=== PATIENT | male | born 1935 | race Caucasian/White ===

== ENCOUNTER 2017-03-21 10:13 | Observation (INO) | payer MEDICAID ==
[~2017-03-21] VITALS: Ht 180.3 cm; Wt 100.0 kg
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
--- NOTE | ~2017-03-21 | DS ---
PATIENT:MIC RESENDIZ :37 MEDICAL RECORD: [id number] DISCHARGE SUMMARY ADMISSION DATE: 03/21/17 DISCHARGE DATE: 03/22/17 DATE OF ADMISSION: 03/21/2017. DATE OF DISCHARGE: 03/22/2017. ADMISSION DIAGNOSES: 1. Fall. 2. Chronic right rib fractures. 3. Right acromioclavicular joint dislocation. 4. Diabetes mellitus. 5. Coronary artery disease. 6. Atrial fibrillation. 7. Dyslipidemia. 8. Hypertension. 9. Hypothyroidism. DISCHARGE DIAGNOSES: 1. Fall. 2. Chronic right rib fractures. 3. Right acromioclavicular joint dislocation. 4. Diabetes mellitus. 5. Coronary artery disease. 6. Atrial fibrillation. 7. Dyslipidemia. 8. Hypertension. 9. Hypothyroidism. PROCEDURE: None. CONSULTATIONS: Orthopedic surgery. REPORT OF HOSPITALIZATION: The patient was admitted to the hospital through the ER and the patient had a language barrier as he was from [facility] and was a very poor historian. It is very difficult to determine what exactly was going on with the patient, whether his rib fractures and AC joint dislocation were acute or chronic injury that did happen about 8 months prior. The patient used to be a patient of Dr. Whimtan's, but according to the report that we received he had been discharged from his clinic. The patient has a history of atrial fibrillation and coronary artery disease and sees Dr. Layne. He was admitted through the ER with these what was believed to be acute injuries, but after speaking with the patient I believe his injuries were actually chronic in nature. He states that he just fell down while walking across the street, he reports that he falls down quite often and he is unsure why. He does not have a primary care physician at this point since he no longer sees Dr. Whitman and is very adamant about findings some doctor to take care him. The patient had some degree of confusion, but appears to be fairly alert. The patient was stable and an ortho evaluation showed that this may be an acute versus chronic injury and they recommended an MRI to see him back as an outpatient. The patient was also seen by [facility] for an evaluation for possible inpatient placement. They felt that there was no need for any inpatient hospitalization and felt he should be stable for discharge home and was on correct medication. Upon reviewing all of these things, the patient was set up for discharge home. At that time, he DISCHARGE SUMMARY REPORT [id number] MIC RESENDIZ was quite upset and was combative with the nurses and stated that he was just going to go to [place] to a hospital there. The patient's IV was removed and he was eventually discharged home with a sling for his arm. DISCHARGE INSTRUCTIONS: To follow up with the primary care physician CAROLINE. DISCHARGE FOLLOWUP: With Dr. Lama in ortho clinic with an outpatient MRI. DISCHARGE MEDICATIONS: Resume all home medications. TRANSINT:[id number] Voice Confirmation ID: [id number] DOCUMENT ID: [id number] ZE BAZAN MD at 1123 CC: [id number] DICTATION DATE: 04/12/1754 SOFTWARE SUPPORT REPRESENTATIVE: 04/13/17 0217 DIS IN 03/22/17 [place] [place] [address]
[~2017-03-21 10:13] MED LIST: ACETAMINOPHEN500 M1 PO; AMBIEN10 MG PO; AMITIZA24 MCG PO; ASPIRIN EC81 M1 PO; ASPIRIN81 MG PO; ATIVAN1 MG PO; BETAPACE 80 MG80 MG PO; CLONAZEPAM; CRESTOR10 MG PO; FLOMAX0.4 MG PO; GLUCOPHAGE500 MG PO; K-DUR20 MEQ PO; KLONOPIN1 MG PO; LANOXIN125 MCG PO; LANOXIN250 MCG PO; LASIX20 MG PO; LASIX40 MG PO; LEVOTHROID125 MCG PO; LEXAPRO10 MG PO; LIDODERM 5 %1 PATCH TD; LYRICA75 MG PO; METOPROLOL TART50 MG PO; PROSCAR5 MG PO; REMERON15 MG PO; REQUIP1 MG PO; SYNTHROID100 MCG PO; SYNTHROID125 MCG PO; TENORMIN50 MG PO; TOPROL XL50 MG PO; ULTRAM50 MG PO; ZETIA10 MG PO; ZYLOPRIM300 MG PO
[2017-03-21 11:20] LABS: BASOPHILS 0.2 % (0-2); EOSINOPHILS 4.7 % (0-7); HEMATOCRIT 36.1 % (42.0-54.0); HEMOGLOBIN 11.5 g/dL (13.5-17.5); IMMATURE GRANULOCYTES 0.2 % (0-5); LYMPHOCYTES 22.4 % (15-50); MCH 22.9 pg (26.0-34.0); MCHC 31.9 g/dL (31.0-37.0); MCV 71.8 fL (80.0-100.0); MEAN PLATELET VOLUME 8.8 fL (7.4-10.4); MONOCYTES 10.9 % (2-11); NEUTROPHILS 61.6 % (40-80); PLATELET COUNT 207 10x3/uL (130-400); RBC 5.03 10x6/uL (4.20-6.10); RDW 17.1 % (11.5-14.5); WBC 6.4 10x3/uL (4.8-10.8)
[2017-03-21 11:34] LABS: APTT 35.3 SECONDS (22.8-39.4); INR 1.39 (0.85-1.17); PROTIME 16.6 SECONDS (11.6-15.0)
[2017-03-21 11:40] LABS: ALBUMIN 3.3 g/dL (3.4-5.0); ANION GAP 10.9 mmol/L (8-16); BILIRUBIN - TOTAL 0.4 mg/dL (0.2-1.3); CALCIUM 8.3 mg/dL (8.5-10.1); CARBON DIOXIDE 26.4 mmol/L (21.0-32.0); CREATININE - SERUM 1.1 mg/dL (0.6-1.3); POTASSIUM - SERUM 4.3 mmol/L (3.5-5.1); PROTEIN - SERUM 6.7 g/dL (6.4-8.2)
[2017-03-21 12:43] LABS: APPEARANCE CLEAR (CLEAR); BILIRUBIN NEGATIVE (NEGATIVE); COLOR YELLOW (YELLOW); GLUCOSE NEGATIVE (NEGATIVE); KETONE NEGATIVE (NEGATIVE); NITRITE NEGATIVE (NEGATIVE); PROTEIN NEGATIVE (NEGATIVE); SPECIFIC GRAVITY 1.015 (1.005-1.020); UROBILINOGEN NORMAL (NORMAL)
[2017-03-21 12:46] LABS: BACTERIA FEW /hpf (NONE SEEN); EPITHELIAL CELLS 0-5 /hpf (0-5); MUCUS <1+ /lpf (NONE SEEN); RED CELLS - URINE 0-5 /hpf (0-5); WHITE CELLS - URINE OCC /hpf (0-5)
[2017-03-21 12:48] LABS: UDS - AMPHET NEGATIVE QUAL (NEGATIVE); UDS - BARB NEGATIVE QUAL (NEGATIVE); UDS - BENZO NEGATIVE QUAL (NEGATIVE); UDS - COCAINE NEGATIVE QUAL (NEGATIVE); UDS - OPIATE NEGATIVE QUAL (NEGATIVE); UDS - PCP NEGATIVE QUAL (NEGATIVE); UDS - THC NEGATIVE QUAL (NEGATIVE)
[2017-03-22] VITALS: BP 70/35
[2017-03-22 04:00] VITALS: BP 108/58
[2017-03-22 04:37] VITALS: BP 93/41; BMI 30.7
[2017-03-22 08:21] VITALS: BP 124/65
[2017-03-22 11:50] VITALS: BP 133/72
[2017-03-22 12:14] VITALS: Ht 180.3 cm; Wt 100.0 kg
[2017-03-22 16:09] VITALS: BP 110/64
== END 2017-03-22 18:38 | disposition left against medical advice (07) ==
LOC: D.ER 10:13 → D.MS 16:12 → OBSVTIME 16:12 → D.MS 16:12
PROVIDERS: Emergency Medicine
DX: S43.101A Unspecified dislocation of right acromioclavicular joint, initial encounter (principal); S22.31XA Fracture of one rib, right side, initial encounter for closed fracture; I10 Essential (primary) hypertension; E03.9 Hypothyroidism, unspecified; I25.10 Atherosclerotic heart disease of native coronary artery without angina pectoris; E11.9 Type 2 diabetes mellitus without complications; I48.91 Unspecified atrial fibrillation; Z79.01 Long term (current) use of anticoagulants; S22.41XA Multiple fractures of ribs, right side, initial encounter for closed fracture

== ENCOUNTER → 2017-05-06 12:27 | Outpatient (CLI) | payer MEDICARE ==
[2017-03-22 12:14] VITALS: BMI 30.7
== END | disposition home or self-care (01) ==
LOC: D.MRI 12:27
DX: M48.00 Spinal stenosis, site unspecified (principal); M54.5 Low back pain

== ENCOUNTER 2017-06-25 14:50 | Observation (INO) | payer MEDICARE ==
[~2017-06-25] VITALS: Ht 180.3 cm; Wt 87.7 kg
--- NOTE | ~2017-06-25 | HP ---
PATIENT: MIC RESENDIZ MEDICAL RECORD: [id number] ACCOUNT: [id number] LOCATION:[address] : 37 ADMISSION DATE: 06/25/17 HISTORY AND PHYSICAL EXAMINATION HISTORY OF PRESENT ILLNESS: An 82-year-old gentleman with known history of coronary artery disease, status post recent intervention via Dr. Layne. He has a history of atrial fibrillation, admitted with chest pain, tightness consistent with angina, found to be in atrial fibrillation with RVR. He was given IV Cardizem. He converted to sinus rhythm. He continued to have pain intermittently. Unfortunately, he missed 2 or 3 doses of Plavix and sotalol. We are asked to see him concerning his cardiovascular status. PAST MEDICAL HISTORY: Includes history of hypertension, atrial fibrillation, and hypothyroidism, on replacement. ALLERGIES: PENICILLIN. MEDICATIONS: Include Synthroid 125 mcg every day, Raphine 10/325 every day, Lexapro 10 every day, aspirin 81 every day, sotalol 80 b.i.d., Plavix 75 every day, ProAir 2 puffs q.6 hours. PHYSICAL EXAMINATION GENERAL: Pleasant gentleman in no acute distress. VITAL SIGNS: Blood pressure 113/65, pulse 66 and regular. HEENT: Normocephalic and atraumatic. NECK: No bruits noted. HEART: Regular, II/ systolic ejection murmur. LUNGS: Good air excursion. ABDOMEN: Soft, nontender. EXTREMITIES: Pulses 2+ with no edema. DIAGNOSTIC DATA: ECG shows left anterior fascicular block and initial atrial fibrillation, now sinus rhythm. IMPRESSION: Continued pain. Unfortunately, given his Plavix noncompliance, we probably need to revisualize anatomy with continued pain. Otherwise, increase sotalol to 120 b.i.d. Further recommendations based on above. TRANSINT:[id number] Voice Confirmation ID: [id number] DOCUMENT ID: [id number] JIMBO RIOS MD at 1328 CC: [id number] DICTATION DATE: 06/26/17 0858 LOCKSTITCH HEMMER: 06/26/17 0934 ADM IN [place] [id number] [place] [address]
--- NOTE | ~2017-06-25 | OP ---
PATIENT NAME: MIC RESENDIZ MEDICAL RECORD: [id number] :37 LOCATION:D.M2 D.2123 ADMISSION DATE:06/25/17 SURGEON: JIMBO RIOS MD DATE OF OPERATION: 06/26/2017 PROCEDURE: Left heart catheterization, selective coronary angiography, right femoral artery approach. CATHETERS: A 5-Korean sheath, 5/4 left and right Romina, 5/4 pig. The procedure was well tolerated. The patient returned to saenz. Sheath removed. Exoseal device placed. FINDINGS: Left ventriculography in 30-degree DOYLE view: Difficult to fully assess focal wall motion with underlying PACs and short bursts of AFib, although function appears to be mildly reduced at 40% to 45%. CORONARY ANATOMY: LEFT MAIN: The left main is free of disease. LAD: Fills 1 diagonal before it is totally occluded. This diagonal has a stent that is widely patent. CIRCUMFLEX: Circumflex itself is patent distally. There is totally occluded OM. RIGHT CORONARY ARTERY: Totally occluded in its proximal portion. SAPHENOUS VEIN GRAFTS: 1. Saphenous vein graft to the right coronary artery is widely patent with good runoff distally. 2. Saphenous vein graft to the OM is widely patent without evidence of post-anastomotic stenosis. 3. FOSS to LAD is widely patent. IMPRESSION: Patent stent to the diagonal, patent saphenous graft, mildly decreased LV function. Continue medical management. We will increase sotalol to 120 b.i.d. upon discharge. TRANSINT:[id number] Voice Confirmation ID: [id number] DOCUMENT ID: [id number] JIMBO RIOS MD at 1155 CC: [id number] DICTATION DATE: 06/26/17 1333 FINANCIAL ASSISTANCE SPECIALIST: 06/26/17 1356 DIS IN 06/26/[address] [facility] [address] [place] [address]
--- NOTE | ~2017-06-25 | HEMODYNAMI ---
PATIENT:MIC RESENDIZ MEDICAL RECORD: [id number] : 37 LOCATION:[facility] [address] [facility]# [id number] ADMISSION DATE: 06/25/17 Generatedon:06/26/201713:28 Patient name: MIC RESENDIZ Patient #: [id number] SSN : [id number] : 1935 Date of study: 06/26/2017 Page: Of Hemodynamic Procedure Report Patient Data Patient Demographics Procedure consent was obtained First Name: MIC Gender: Male Last Name: MARTÍN : 1935 Patient #: [id number] Age: 82 year(s) Race: SSN: [id number] Additional ID: [id number] Contact details Address: [address] [place] [address] State: [place] City: [facility] Zip code: [address] Past Medical History Allergies Allergen Reaction Date Comments Reported Other allergy 05/21/2017 PCN Penicillins 05/22/2017 Other allergy 06/26/2017 penicillin Admission Admission Data Admission Date: 06/25/2017 Admission Time: 18:37 Arrival Date: 06/25/2017 Arrival Time: 18:03 Admit Source: Other Insurance Payor: Medicare Room #: D.2123 Lab Results Lab Result Date: 06/26/2017 Lab Result Time: 0:00 Biochemistry Name Units Result Min Max BUN mg/dl 24 --(----)-* 7 18 Creatinine mg/dl 1.1 --(--*-)-- 0.6 1.3 Glucose mg/dl 88 --(-*--)-- 74 106 CBC Name Units Result Min Max Hemoglobin g/dl 11.7 *-(----)-- 13.5 17.5 RBC 10^6/l 5.2 --(--*-)-- 4.2 6.1 WBC 10^3/l 8.5 --(--*-)-- 4.8 10.8 Procedure Procedure Types Cath Procedure Diagnostic Procedure [facility] w/Coronaries w/Grafts Procedure Description Procedure Date Procedure Date: 06/26/2017 Procedure Start Time: 13:12 Procedure End Time: 13:24 Procedure Staff Name Function Claudio Mckenzie MD Performing Physician Deb Hodge RT Monitor Emir Richardson RN Nurse Gloria Maza RT Scrub Procedure Data Cath Procedure Fluoroscopy Diagnostic fluoroscopy Total fluoroscopy Time: 3.8 time: 3.8 min min Diagnostic fluoroscopy Total fluoroscopy dose: 871 dose: 871 mGy mGy Contrast Material Contrast Material Type Amount (ml) Isovue 300 75 Entry Location Entry Primary Successful Side Size Upsize Upsize Entry Closure Succes sful Closure Location (Fr) 1 (Fr) 2 (Fr) Remarks Device Remarks Femoral Right 5 Fr Exoseal artery Estimated blood loss: 5 ml Diagnostic catheters Device Type Used For End Catheter Placement MULTIPACK JL 4.0 5Fr Left Coronary catheter Angiography MULTIPACK 3DRC 5Fr Right Coronary catheter Angiography MULTIPACK Pigtail 5 Fr LV Angiography catheter Procedure Complications No complications Procedure Medications Medication Administration Route Dosage Oxygen etCO2 Nasal cannula 2 l/min Heparin Flush Bag added to field 1 bags (1000units/500ml NS) 0.9% NaCl I.V. 100 ml/hr Fentanyl I.V. 50 mcg Versed I.V. 1 mg Fentanyl I.V. 50 mcg Versed I.V. 1 mg Hemodynamics Rest HGB: 11.7 (g/dl) Heart Rate: 88 (bpm) Pressure Samples Time Site Value (mmHg) Purpose Heart Use Rate(bpm) 13:21 LV 107/19,18 Snapshot 105 13:21 AO 108/74(89) Pullback 99 13:21 LV 111/22,12 Pullback 99 Gradients Valve Time Site 1 Site 2 Mean SEP/DFP Peak To Heart Use (mmHg) (sec/min) Peak Rate (mmHg) (bpm) Aortic 13:21 LV AO 3 99 111/22,12 108/74(89) Calculations Valve P-P Mean Valve Index Valve Source Name Gradient Area Flow (cm2) Aortic 3 3 Snapshots Pre Cath Intra NCS Post Cath Vital Signs Time Heart Resp SPO2 etCO2 NIBP Rhythm Pain Sedation Rate (ipm) (%) (mmHg) (mmHg) Status Level (bpm) 12:57:39 95 16 99 0 114/79(90) NSR 0 (11) 10(A) , No pain 13:01:51 96 17 95 0 102/64(81) NSR 0 (11) 10(A) , No pain 13:05:59 87 16 96 0 105/65(93) NSR 0 (11) 10(A) , No pain 13:10:05 88 16 97 0 85/54(72) NSR 0 (11) 9(A) , No pain 13:14:09 80 16 100 36.9 96/59(80) NSR 0 (11) 9(A) , No pain 13:18:12 101 16 100 15.1 98/65(80) NSR 0 (11) 9(A) , No pain 13:22:51 123 17 98 39.2 113/84(97) NSR 0 (11) 9(A) , No pain Medications Time Medication Route Dose Verified Delivered Reason Notes Effe ctiveness by by 13:07:25 Oxygen etCO2 2 Claudio Emir Per Nasal l/min St Hugo Richardson RN physician cannula 13:07:34 Heparin Flush added 1 Claudio Emir used for Bag to bags St Hugo Richardson RN procedure (1000units/500ml field MARQUEZ NS) 13:07:43 0.9% NaCl I.V. 100 Claudio Emir Per ml/hr St Hugo Richardson RN physician 13:09:07 Fentanyl I.V. 50 Claudio [place] for [facility] Hugo Richardson RN sedation 13:09:13 Versed I.V. 1 mg Claudio Vázquezy for [facility] Hugo Richardson RN sedation 13:12:47 Fentanyl I.V. 50 Claudio Field for [facility] Hugo Richardson RN sedation 13:12:51 Versed I.V. 1 mg Claudio Vázquezy for St Hugo Richardson RN sedation Procedure Log Time Note 12:27:19 Lab Result : Glucose 88 mg/dl 12:27:19 Lab Result : RBC 5.2 10^6/l 12:27:19 Lab Result : WBC 8.5 10^3/l 12:27:19 Lab Result : Hemoglobin 11.7 g/dl 12:27:19 Lab Result : BUN 24 mg/dl 12:27:19 Lab Result : Creatinine 1.1 mg/dl 12:28:43 Diagnostic Cath status Elective 12:28:50 Gloria Maza RT(R) sent for patient. Start room use. 12:28:51 Time tracking: Regular hours 12:28:57 Plan of Care:Hemodynamics will remain stable., Cardiac rhythm will remain stable., Comfort level will be maintained., Respiratory function will remain adequate., Patient/ family verbilizes understanding of procedure., Procedure tolerated without complication., Recovers from procedure without complications.. 12:41:12 Informed consent obtained and on chart 12:45:59 Admit Source: Other 12:46:09 Arrival Date: 06/25/2017 6:03:00 PM 12:46:16 Insurance Payor : Medicare 12:47:11 Patient received from Med II to CCL 2 Alert and oriented. Tansferred to table in Supine position. 12:47:12 Warm blankets applied, and nelia hugger turned on for patient comfort. 12:47:13 Correct patient and procedure confirmed by team. 12:47:14 ECG and BP/O2 sat monitors applied to patient. 12:56:40 Vital chart was started 12:57:36 Baseline sample Acquired. 12:57:46 Rhythm: atrial fibrillation 12:57:48 Full Disclosure recording started 12:57:57 H&P Date Dictated: 06/26/2017 New H&P dictated by physician.. 12:57:59 Pre-procedure instructions explained to patient. 12:57:59 Pre-op teaching completed and patient verbalized understanding. 12:58:30 Family in patients room. 12:59:15 Patient allergic to Other allergypenicillin 12:59:17 Is the patient allergic to Iodine/contrast media? No. 12:59:18 Was the patient premedicated? No 12:59:19 Is patient on blood thinner?Yes 12:59:22 ACC The patient was administered the following blood thiners within the last 24 hours: ACCPlavix 13:02:03 Patient diabetic? No. 13:02:05 Previous problem with sedation/anesthesia? No ? 13:02:06 Snore? Yes 13:02:08 Sleep apnea? No 13:02:08 Deviated septum? No 13:02:09 Opens mouth fully? Yes 13:02:10 Sticks out tongue? Yes 13:02:12 Airway obstruction? No ? 13:02:14 Dentures? No ? 13:04:19 Pre procedure: right dorsailis pedis pulse 1+ Palpable, but thready & weak; easily obliterated 13:04:21 Pre procedure: left dorsailis pedis pulse 1+ Palpable, but thready & weak; easily obliterated 13:04:25 Patient pain scale 0/10 ?. 13:04:39 IV patent on arrival in left forearm with 0.9% NaCl at O. 13:04:41 Lab results completed and on chart. 13:05:01 Alarms reviewed by R. N. 13:05:02 Sharps counted by scrub and verified by R.N. 13:07:13 Zero performed for pressure channel P1 13:07:25 Oxygen 2 l/min etCO2 Nasal cannula was administered by Emir Richardson RN; Per physician; 13:07:34 Heparin Flush Bag (1000units/500ml NS) 1 bags added to field was administered by Emir Richardson RN; used for procedure; 13:07:43 0.9% NaCl 100 ml/hr I.V. was administered by Emir Richardson RN; Per physician; 13:07:49 Physician arrived 13:07:50 --------ALL STOP TIME OUT------ 13:07:51 Final Timeout: patient, procedure, and site verified with staff and physician. All members of the team are in agreement. 13:07:53 Right groin site verified by team. 13:07:55 Physical assessment completed. ASA score P 2 - A patient with mild systemic disease as per Claudio Mckenzie MD. 13:07:59 Sedation plan: IV Moderate Sedation Medication:Versed, Fentanyl 13:09:07 Fentanyl 50 mcg I.V. was administered by Emir Richardson RN; for sedation; 13:09:13 Versed 1 mg I.V. was administered by Emir Richardson RN; for sedation; 13:09:40 Use device set Femoral Dx 13:09:42 ACIST Syringe (70910) opened to sterile field. 13:09:42 Bag Decanter (2002S) opened to sterile field. 13:09:43 Medline Cath Pack ([id number]) opened to sterile field. 13:09:43 SHEATH 5FR [place] (TTP711) opened to sterile field. 13:09:44 DIAGNOSTIC WIRE .035 260cm J wire (869401) opened to sterile field. 13:09:49 ACIST Hand Control (99508) opened to sterile field. 13:09:50 ACIST Manifold (79644) opened to sterile field. 13:09:51 DIAGNOSTIC Multipack 5Fr catheter set (KO6363) opened to sterile field. 13:09:53 Tegaderm 4 x 4 (1626W) opened to sterile field. 13:12:11 Procedure started. 13:12:14 Local anesthetic to right femoral artery with Lidocaine 2% by Claudio Mckenzie MD.INITIAL ACCESS ONLY 13:12:22 A 5 Fr sheath was inserted into the Right Femoral artery 13:12:47 Fentanyl 50 mcg I.V. was administered by Emir Richardson RN; for sedation; 13:12:51 Versed 1 mg I.V. was administered by Emir Richardson RN; for sedation; 13:13:30 A MULTIPACK JL 4.0 5Fr catheter was advanced over the wire and used for Left Coronary Angiography. 13:15:24 LCA angiography performed. 13:15:28 Injector settings: Ml/sec: 3, Volume: 6, 13:16:32 Catheter removed. 13:16:39 A MULTIPACK 3DRC 5Fr catheter was advanced over the wire and used for Right Coronary Angiography. 13:17:20 SVG to RCA angiography performed. 13:18:26 SVG to Circ angiography performed. 13:18:46 FOSS angiography performed. 13:19:05 Injector settings: Ml/sec: 3, Volume: 6, 13:19:24 Catheter removed. 13:19:30 A MULTIPACK Pigtail 5 Fr catheter was advanced over the wire and used for LV Angiography. 13:21:17 LV hemodynamics recorded. 13:21:19 LV gram done using DOYLE 13:21:21 Injector settings: Ml/sec: 5, Volume: 15, 13:21:34 EF : 40 % 13:21:51 Catheter removed. 13:21:56 EXOSEAL 5Fr (EX500) opened to sterile field. 13:22:06 Sheath removed intact; hemostasis achieved with Exoseal to the Right Femoral artery. 13:22:08 Procedure ended.(Physican Out) 13:22:51 Fluoroscopy time 03.80 minutes. 13:22:55 Fluoroscopy dose: 871 mGy 13:22:55 Flurop Dose total: 871 13:22:58 Contrast amount:Isovue 300 75ml. 13:23:00 Sharps counted by scrub and verified by R.N. 13:23:01 Insertion/operative site no bleeding no hematoma. 13:23:04 Post-op/insertion site Right Femoral artery dressed using a 4 x 4 and Tegaderm. 13:23:06 Post right femoral artery:stable 13:23:34 Post Procedure Pulses reassessed and unchanged 13:23:37 Post procedure rhythm: unchanged. 13:23:39 Estimated blood loss: 5 ml 13:23:40 Post procedure instruction explained to patient.Patient verbalizes understanding. 13:23:41 Patient needs reinforcement of post procedure teaching. 13:24:07 Procedure type changed to Cath procedure, Diagnostic procedure, LHC, LHC w/Coronaries w/Grafts 13:24:08 Procedure and supply charges have been captured, reviewed, submitted and are correct. 13:24:12 Procedure Complication : No complications 13:24:14 Vital chart was stopped 13:24:21 See physician's report for complete and final results. 13:24:25 Report given to [facility]. 13:24:41 Patient transfered to [facility] with Stretcher. 13:24:44 Procedure ended. 13:24:44 Full Disclosure recording stopped 13:24:49 End room use (Document Last) Device Usage Item Name Manufacture Quantity Catalog Hospital Part Current Minimal L ot# / Number Charge Number Stock Stock Serial# Code ACIST Acist 1 61569 600473 690305 180613 20 Syringe Medical (76304) Systems Inc Bag Microtek 1 728760 56822 322557 5 Decanter Medical Inc. () Medline Cardinal 1 [id number] 462173 54682 314149 5 Cath Pack Health ([id number]) SHEATH 5FR Terumo 1 NYT593 383772 053025 277388 40 [place] (PUF654) DIAGNOSTIC St [place] 1 248556 787968 462178 011744 30 WIRE .035 260cm J wire (199957) ACIST Hand Acist 1 28342 144615 832451 865550 5 Control Medical (87625) Systems Inc ACIST Acist 1 10875 051179 738414 542486 5 Manifold Medical (87755) Systems Inc DIAGNOSTIC Cardinal 1 AE7911 400870 66655 718676 30 Multipack Health 5Fr catheter set (ZF2942) Tegaderm 4 3M 1 1626W 906280 085376 607416 5 x 4 (1626W) MULTIPACK Cardinal 1 650113 5 JL 4.0 5Fr Health catheter MULTIPACK Cardinal 1 648334 5 3DRC 5Fr Health catheter MULTIPACK Cardinal 1 036323 5 Pigtail 5 Health Fr catheter EXOSEAL 5Fr Cardinal 1 EX500 081620 660357 400606 10 (EX500) Health Signature Audit [place] Stage Time Signature Unsigned Intra-Procedure 06/26/2017 Deb Hodge 1:28:52 PM RT(R) Signatures Monitor : Deb Hodge RT Signature : Date : Time : [place] [address] [place] [address]
[~2017-06-25 14:50] MED LIST changes: +BAYER CHEWABLE81 MG PO; +COUMADIN5 MG PO; +OMEPRAZOLE40 MG PO; +PLAVIX75 MG PO; +PROAIR HFA8.5 GM INH; +VIBRAMYCIN 100100 MG PO
[2017-06-25 16:05] LABS: BASOPHILS 0.2 % (0-2); EOSINOPHILS 3.1 % (0-7); HEMATOCRIT 36.3 % (42.0-54.0); HEMOGLOBIN 11.7 g/dL (13.5-17.5); IMMATURE GRANULOCYTES 0.4 % (0-5); LYMPHOCYTES 27.9 % (15-50); MCH 22.5 pg (26.0-34.0); MCHC 32.2 g/dL (31.0-37.0); MCV 69.8 fL (80.0-100.0); MONOCYTES 12.7 % (2-11); NEUTROPHILS 55.7 % (40-80); PLATELET COUNT 207 10x3/uL (130-400); RDW 17.2 % (11.5-14.5); WBC 8.5 10x3/uL (4.8-10.8)
[2017-06-25 16:28] LABS: ALBUMIN 3.2 g/dL (3.4-5.0); ALKALINE PHOSPHATASE 42 U/L (46-116); ALT (SGPT) 15 U/L (10-68); BILIRUBIN - TOTAL 0.52 mg/dL (0.2-1.3); CALC OSMOLALITY 281 mosm/kg (275-300); CARBON DIOXIDE 27.2 mmol/L (21.0-32.0); CHLORIDE - SERUM 106 mmol/L (98-107); CREATININE - SERUM 1.1 mg/dL (0.6-1.3); GLUCOSE 88 mg/dL (74-106); POTASSIUM - SERUM 3.8 mmol/L (3.5-5.1); PROTEIN - SERUM 6.8 g/dL (6.4-8.2); SODIUM 140 mmol/L (136-145); UREA NITROGEN 24 mg/dL (7-18); eGFR NON AFRICAN AMERICAN 68 mL/min (90-120)
[2017-06-25 16:37] LABS: CHOL - HDL RATIO 5.6 ratio (2.3-4.9); CHOLESTEROL, TOTAL 234 mg/dL (0-200); CREATINE KINASE 49 UL (21-232); HDL CHOLESTEROL 42 mg/dL (32-96); LDL CHOLESTEROL 162 mg/dL (0-100); LDL-HDL RATIO 3.9 ratio (1.5-3.5); TRIGLYCERIDE 154 mg/dL (30-200)
[2017-06-25 16:43] LABS: INR 1.2 (0.85-1.17); PROTIME 14.8 SECONDS (11.6-15.0)
[2017-06-25 16:45] LABS: D-DIMER-QUANTITATIVE 0.37 ug/mLFEU (0.20-0.54)
[2017-06-25 16:51] LABS: TROPONIN-I < 0.017 ng/mL (0.000-0.060)
[2017-06-25 19:42] LABS: CREATINE KINASE 51 UL (21-232)
[2017-06-25 19:43] LABS: TROPONIN-I < 0.017 ng/mL (0.000-0.060)
[2017-06-26] VITALS: BP 101/67
[2017-06-26] MEDS ORDERED: HYDROCODONE-APA1 TAB PO (00:20)
[2017-06-26 01:33] LABS: CKMB 1.2 U/L (0.0-3.6); CREATINE KINASE 49 UL (21-232); TROPONIN-I < 0.017 ng/mL (0.000-0.060)
[2017-06-26 04:00] VITALS: BP 100/62
[2017-06-26 04:57] VITALS: BP 101/67; Ht 180.3 cm; Wt 87.7 kg
[2017-06-26 06:34] LABS: CKMB 1.1 U/L (0.0-3.6); CREATINE KINASE 43 UL (21-232)
[2017-06-26 06:35] LABS: TROPONIN-I < 0.017 ng/mL (0.000-0.060)
[2017-06-26 07:50] VITALS: BP 113/65
[2017-06-26 10:13] LABS: CALCIUM 8.5 mg/dL (8.5-10.1); CARBON DIOXIDE 26.7 mmol/L (21.0-32.0); CREATININE - SERUM 1.2 mg/dL (0.6-1.3)
[2017-06-26 10:15] LABS: POTASSIUM - SERUM 4.7 mmol/L (3.5-5.1)
[2017-06-26 10:58] VITALS: BP 103/65
[2017-06-26] MEDS ORDERED: BETAPACE 120 M120 MG PO (14:16)
[2017-06-26 15:11] VITALS: BP 92/59
== END 2017-06-26 18:58 | disposition home or self-care (01) ==
LOC: D.ER 14:50 → D.EDHOLD 18:37 → D.M2 18:37 → OBSVTIME 18:37 → D.M2 20:08
PROVIDERS: Family Medicine; Internal Medicine Interventional Cardiology
DX: I44.4 Left anterior fascicular block (principal); I48.91 Unspecified atrial fibrillation; I25.10 Atherosclerotic heart disease of native coronary artery without angina pectoris; I25.82 Chronic total occlusion of coronary artery; I10 Essential (primary) hypertension; Z95.1 Presence of aortocoronary bypass graft; Z95.5 Presence of coronary angioplasty implant and graft; E03.9 Hypothyroidism, unspecified

== ENCOUNTER → 2018-02-05 11:01 | Outpatient (CLI) | payer MEDICARE, MEDICAID ==
[2017-06-26 04:57] VITALS: BMI 26.9
[~2018-02-05 11:01] MED LIST changes: +BETAPACE 120 M120 MG PO; +HYDROCODONE-APA1 TAB PO
== END | disposition home or self-care (01) ==
LOC: D.CT 02-04 11:00
DX: R10.9 Unspecified abdominal pain (principal)

== ENCOUNTER 2018-07-13 06:35 | Observation (INO) | payer MEDICARE, MEDICAID ==
[~2018-07-13] VITALS: Ht 180.3 cm; Wt 94.7 kg
[2018-07-13] VITALS (8 sets, daily range): BP systolic 90–108; BP diastolic 50–75; BMI 30.1
--- NOTE | ~2018-07-13 | EC ---
PATIENT:MIC RESENDIZ DATE OF SERVICE: 07/13/18 SEX: M MEDICAL RECORD: [id number] DATE OF : 37 LOCATION:D.M2 D.212 AGE OF PATIENT: 83 ADMISSION DATE: 07/13/18 REFERRING PHYSICIAN: INTERPRETING PHYSICIAN: ANTONIETA LAYNE MD ECHOCARDIOGRAM REPORT ECHO CHARGES 4 ECHO COMPLETE Date: 07/14/18 CLINICAL DIAGNOSIS: ECHOCARDIOGRAPHIC MEASUREMENTS (adult normal given) AC root (d.<3.7cm) 3.0 cm LV Septum d (<1.2 cm> 1.3 cm Valve Excursion 1.7 cm LV Septum (systole) 1.4 cm Left Atria (s.<4.0cm> 3.6 cm LVPW d(<1.2cm) 0.9 cm RV (d.<2.3cm) 3.4 cm LVPW (sytole) 1.1 cm LV diastole(<5.6CM) 4.5 cm MV E-F(>70mm/sec) cm LV systole 4.1 cm LVOT Diameter 1.9 cm MV exc.(>10mm) cm Est.ejection fraction (50-75%) % DOPPLER: LVIT cm/sec A 25 cm/sec E 111 cm/sec LA cm/sec RVSP 26.1 mmHg LVOT 67 cm/sec AOP1/2T m/s Asc. Ao 187 cm/sec RVOT 44 cm/sec RA cm/sec PA 54 cm/sec AV Gradient Peak 14.0 mmHg AV Mean 8.7 mmHg AV Area 1.1 cm MV Gradient Peak 6.5 mmHg MV Mean 2.7 mmHg MV Area cm COMMENTS: Airplane Tester: Nick [facility] Water Inspector: 1 Dr. Layne TAPE# PACS Pericardial Effusion N DATE OF SERVICE: PROCEDURE: Echocardiogram. FINDINGS: 1. Left ventricular chamber size is within normal limits. Left ventricular systolic function is normal. Overall ejection fraction estimated at 55%. 2. Left atrium, right atrium, and right ventricular chamber sizes are within normal limits. 3. Valvular structures have normal structure and motion. ECHOCARDIOGRAM REPORT [id number] MIC RESENDIZ 4. Doppler interrogation reveals trace mitral regurgitation, trace tricuspid regurgitation, no other valvular insufficiency or stenosis. Pulmonary systolic pressure is estimated at 26 mmHg. 5. No evidence of pericardial effusion or left ventricular thrombus. TRANSINT:[id number] Voice Confirmation ID: [id number] DOCUMENT ID: [id number] ANTONIETA LAYNE MD CC: [id number] DICTATION DATE: 07/14/18 123 CREDIT RISK OFFICER: 07/14/18 1239 ADM IN [facility] [address] [place] [address]
[2018-07-13] MEDS ORDERED: ELIQUIS5 MG PO (06:39)
[2018-07-13 07:14] LABS: BASOPHILS 0.1 % (0-2); EOSINOPHILS 0.4 % (0-7); HEMATOCRIT 37.5 % (42.0-54.0); HEMOGLOBIN 12.4 g/dL (13.5-17.5); IMMATURE GRANULOCYTES 0.3 % (0-5); LYMPHOCYTES 13.3 % (15-50); MCH 22.9 pg (26.0-34.0); MCHC 33.1 g/dL (31.0-37.0); MCV 69.2 fL (80.0-100.0); MONOCYTES 15.9 % (2-11); PLATELET COUNT 181 10x3/uL (130-400); RBC 5.42 10x6/uL (4.20-6.10); RDW 17.1 % (11.5-14.5)
--- NOTE | 2018-07-13 07:22 | NUR ---
REPORTS PAIN UNCHANGED AFTER NTG, 07/02, BP 90/50, WILL MONITOR CLOSELY
[2018-07-13 07:36] LABS: INR 1.22 (0.85-1.17); PROTIME 14.8 SECONDS (11.6-15.0)
[2018-07-13 07:37] LABS: APTT 37.6 SECONDS (22.8-39.4)
[2018-07-13 07:38] LABS: D-DIMER-QUANTITATIVE < 0.27 ug/mLFEU (0.20-0.54)
[2018-07-13 07:46] LABS: ALBUMIN 3.5 g/dL (3.4-5.0); ALKALINE PHOSPHATASE 51 U/L (46-116); ALT (SGPT) 15 U/L (10-68); BILIRUBIN - TOTAL 1.34 mg/dL (0.2-1.3); CALC OSMOLALITY 272 mosm/kg (275-300); CARBON DIOXIDE 27.4 mmol/L (21.0-32.0); CHLORIDE - SERUM 100 mmol/L (98-107); CKMB 0.5 U/L (0.0-3.6); CREATINE KINASE 39 UL (21-232); CREATININE - SERUM 1.1 mg/dL (0.6-1.3); GLUCOSE 114 mg/dL (74-106); MAGNESIUM - SERUM 1.9 mg/dL (1.8-2.4); POTASSIUM - SERUM 3.7 mmol/L (3.5-5.1); PRO BNP 1447 pg/mL (0-450); PROTEIN - SERUM 7.2 g/dL (6.4-8.2); SODIUM 135 mmol/L (136-145); UREA NITROGEN 18 mg/dL (7-18); eGFR NON AFRICAN AMERICAN 68 mL/min (90-120)
[2018-07-13 07:53] LABS: TROPONIN-I < 0.017 ng/mL (0.000-0.060)
--- NOTE | 2018-07-13 09:08 | NUR ---
RECEIVED REPORT FROM RENZO IN ED. PATIENT TO UNIT SOON. INFORMED RENZO THAT CONSULT FOR WAS PLACED AT 0840 AND SHE NEED TO CALL AND INFORM HIM OF THE CONSULT.
--- NOTE | 2018-07-13 09:31 | NUR ---
RECEIVED PATIENT FROM ED VIA WHEELCHAIR AT THIS TIME. PATIENT ALERT/ORIENTED AND AMBULATED FROM WHEELCHAIR TO BED INDEPENDENTLY. CALL LIGHT WITHIN REACH. NO FAMILY AT BEDSIDE. NO DISTRESS.
--- NOTE | 2018-07-13 12:00 | NUR ---
PATIENT REFUSED LUNCH. STATES HE DOESN'T FEEL LIKE EATING. CALL LIGHT WIHTIN REACH. PATEINT HAS HAD A FEW FRIENDS STOP BY AND SEE HIM. NO DISTRESS.
[2018-07-13 14:35] LABS: % SATURATION 13 % (15-55); IRON 34 ug/dl (35-150); TOTAL IRON BIND CAPACITY 248 ug/dl (260-445); UNSAT IRON BIND CAPACITY 214 ug/dl (150-375)
--- NOTE | 2018-07-13 15:34 | NUR ---
RESTING IN BED WITH EYES CLOSED. VS STABLE. NO DISTRESS.
--- NOTE | 2018-07-13 16:15 | NUR ---
FSBS 87. NO INSULIN PER SLIDING SCALE.
--- NOTE | 2018-07-13 20:06 | NUR ---
INITIAL ROUNDS COMPLETED AT 1910 HRS. PT DENIED ANY DISCOMFORT. ASSESSMENT COMPLETED AT 1954 HRS. VSS. PACED RHYTHM PER CM HR 80. ALERT AND ORIENTED TO PERSON, PLACE AND TIME. WEBER IV TO RAC SL. LUNGS DIMINISHED IN BASES BILAT. SR UP X2, CALL LIGHT WITHIN REACH.
--- NOTE | 2018-07-13 21:28 | NUR ---
FSBS 110. NO COVERAGE NEEDED. PM MEDS GIVEN. PT DENIED ANY DISCOMFORT. CALL LIGHT WITHIN REACH.
--- NOTE | 2018-07-13 23:44 | NUR ---
PT RESTING WITH EYES CLOSED. RESP EVEN AND REGULAR. CALL LIGHT WITHIN REACH.
[2018-07-14 00:30] VITALS: BP 97/49
--- NOTE | 2018-07-14 01:56 | NUR ---
PT RESTING WITH EYES CLOSED. RESP EVEN AND REGULAR. SR UP X2, CALL LIGHT WITHIN REACH.
[2018-07-14 03:48] VITALS: BP 108/60
--- NOTE | 2018-07-14 04:07 | NUR ---
PT RESTING WITH EYES CLOSED. RESP EVEN AND REGULAR. SR UP X2, CALL LIGHT WITHIN REACH.
[2018-07-14 06:04] LABS: ANION GAP 7.8 mmol/L (8-16); CALCIUM 8.5 mg/dL (8.5-10.1); CARBON DIOXIDE 31.3 mmol/L (21.0-32.0); CREATININE - SERUM 1.1 mg/dL (0.6-1.3); POTASSIUM - SERUM 4.1 mmol/L (3.5-5.1)
--- NOTE | 2018-07-14 06:38 | NUR ---
VSS THROUGHOUT NIGHT. PACED RHYTHM PER CM. PT DENIED ANY DISCOMFORT. AM FSBS 167. PT DECLINED AM INSULIN. NEEDS MET; WILL CONTINUE TO MONITOR.
[2018-07-14 07:23] LABS: APPEARANCE CLEAR (CLEAR); BILIRUBIN NEGATIVE (NEGATIVE); COLOR YELLOW (YELLOW); GLUCOSE NEGATIVE (NEGATIVE); KETONE NEGATIVE (NEGATIVE); NITRITE NEGATIVE (NEGATIVE); PROTEIN NEGATIVE (NEGATIVE); SPECIFIC GRAVITY 1.015 (1.005-1.020); UROBILINOGEN NORMAL (NORMAL)
[2018-07-14 08:00] VITALS: BP 117/60
--- NOTE | 2018-07-14 08:39 | NUR ---
ASSESSMENT DONE. DENIES NEEDS.
--- NOTE | 2018-07-14 08:44 | NUR ---
I have reviewed this patient and I concur with the Shift Assessment completed by the Licensed Practical Nurse today this shift.
[2018-07-14 08:45] LABS: BASOPHILS 0.1 % (0-2); HEMATOCRIT 37.2 % (42.0-54.0); HEMOGLOBIN 11.9 g/dL (13.5-17.5); IMMATURE GRANULOCYTES 0.1 % (0-5); LYMPHOCYTES 19.8 % (15-50); MCH 22.3 pg (26.0-34.0); MCV 69.8 fL (80.0-100.0); MEAN PLATELET VOLUME 9.1 fL (7.4-10.4); MONOCYTES 23.3 % (2-11); NEUTROPHILS 55.7 % (40-80); PLATELET COUNT 172 10x3/uL (130-400); RBC 5.33 10x6/uL (4.20-6.10); RDW 17.1 % (11.5-14.5); WBC 7.3 10x3/uL (4.8-10.8)
[2018-07-14 12:00] VITALS: BP 101/62
[2018-07-14 13:33] VITALS: Ht 180.3 cm; Wt 94.7 kg
[2018-07-14 16:20] VITALS: BP 96/51
--- NOTE | 2018-07-14 16:40 | NUR ---
WITHOUT CHANGES OR DISTRESS NOTED AT THIS TIME, MARIAM NEEDS.
--- NOTE | 2018-07-14 19:21 | NUR ---
RECIEVED LYING IN BED WITH EYES OPEN. ALERT AND ORIENTED. HAS A VERY THICK ACCENT AND AT TIMES HARD TO UNDERSTAND. VERY TALKATIVE AND REQUEST HIS NOCO BE RESTARTED D/T CHRONIC BACK PAIN. DR. PEDERSON IN HOSPITAL AT THIS TIME AND WILL CALL HIM. IV TO RIGHT AC SL.. PACEMAKER TO LEFT CHEST. TELEMETRY IN PLACE. DENIES ANY OTHER NEEDS.
[2018-07-14 20:00] VITALS: BP 95/48
[2018-07-15 04:00] VITALS: BP 101/57
--- NOTE | 2018-07-15 05:56 | NUR ---
REFUSES LAB DRAW. STATES" SAID I'M DOING GOOD. NO BLOOD". UNABLE TO REDIRECT.
--- NOTE | 2018-07-15 07:30 | NUR ---
ASSESSMENT DONE. PT STATES THAT HE FELL IN THE BATHROOM THIS MORNING. WHEN ASKED ABOUT WHAT TIME HE STATES EARLYER THIS MORNING. ONLY C/O BUMPING BACK ON TRASH CAN. THIS NURSE NOTED A RED SPOT ON RT BACK FLANK AREA.
--- NOTE | 2018-07-15 07:32 | NUR ---
DR AMADO HERE AND NOTIFYED OF FALL
[2018-07-15 08:57] VITALS: BP 139/81
[2018-07-15 09:13] LABS: FOLATE (FOLIC ACID) - SERUM 18.8 ng/mL (>3.0)
--- NOTE | 2018-07-15 11:30 | NUR ---
DC GIVEN TO PT
--- NOTE | 2018-07-15 12:08 | NUR ---
I have reviewed this patient and I concur with the Shift Assessment completed by the Licensed Practical Nurse today this shift.
--- NOTE | 2018-07-15 12:10 | NUR ---
DC HOME PER PERSONAL CAR
== END 2018-07-15 12:10 | disposition home or self-care (01) ==
LOC: D.ER 06:35 → D.EDHOLD 08:48 → D.M2 08:48 → OBSVTIME 08:49 → D.M2 09:02
PROVIDERS: Family Medicine; ADMIT Family Medicine; ATTEND Family Medicine
DX: I25.119 Atherosclerotic heart disease of native coronary artery with unspecified angina pectoris (principal); I10 Essential (primary) hypertension; R51 Headache; E03.9 Hypothyroidism, unspecified; E11.9 Type 2 diabetes mellitus without complications; I48.91 Unspecified atrial fibrillation; Z95.0 Presence of cardiac pacemaker

== ENCOUNTER 2018-09-19 10:24 | Emergency (ER) | payer MEDICARE, MEDICAID ==
[~2018-09-19] VITALS: Ht 180.3 cm; Wt 90.9 kg
[~2018-09-19 10:24] MED LIST changes: +ELIQUIS5 MG PO
[2018-09-19 10:30] VITALS: Ht 180.3 cm; Wt 90.9 kg
[2018-09-19 11:10] LABS: BASOPHILS 0.1 % (0-2); HEMATOCRIT 39.9 % (42.0-54.0); HEMOGLOBIN 12.8 g/dL (13.5-17.5); IMMATURE GRANULOCYTES 0.1 % (0-5); LYMPHOCYTES 35.3 % (15-50); MCH 22.3 pg (26.0-34.0); MCHC 32.1 g/dL (31.0-37.0); MCV 69.4 fL (80.0-100.0); MONOCYTES 12.6 % (2-11); NEUTROPHILS 49.9 % (40-80); RBC 5.75 10x6/uL (4.20-6.10); RDW 16.8 % (11.5-14.5)
[2018-09-19 11:15] LABS: PLATELET COUNT 238 10x3/uL (130-400)
[2018-09-19 11:19] LABS: APTT 37.4 SECONDS (22.8-39.4); INR 1.15 (0.85-1.17); PROTIME 14.2 SECONDS (11.6-15.0)
[2018-09-19 11:21] LABS: APPEARANCE CLEAR (CLEAR); BILIRUBIN NEGATIVE (NEGATIVE); COLOR STRAW (YELLOW); GLUCOSE NEGATIVE (NEGATIVE); KETONE NEGATIVE (NEGATIVE); NITRITE NEGATIVE (NEGATIVE); PROTEIN NEGATIVE (NEGATIVE); UROBILINOGEN NORMAL (NORMAL)
[2018-09-19 11:34] LABS: UDS - AMPHET NEGATIVE QUAL (NEGATIVE); UDS - BARB NEGATIVE QUAL (NEGATIVE); UDS - BENZO NEGATIVE QUAL (NEGATIVE); UDS - COCAINE NEGATIVE QUAL (NEGATIVE); UDS - OPIATE POSITIVE QUAL (NEGATIVE); UDS - PCP NEGATIVE QUAL (NEGATIVE); UDS - THC NEGATIVE QUAL (NEGATIVE)
[2018-09-19 11:35] LABS: ALBUMIN 3.9 g/dL (3.4-5.0); ALKALINE PHOSPHATASE 68 U/L (46-116); ALT (SGPT) 21 U/L (10-68); BILIRUBIN - TOTAL 1.06 mg/dL (0.2-1.3); CALC OSMOLALITY 281 mosm/kg (275-300); CALCIUM 9.4 mg/dL (8.5-10.1); CARBON DIOXIDE 26.1 mmol/L (21.0-32.0); CHLORIDE - SERUM 103 mmol/L (98-107); CREATININE - SERUM 1.1 mg/dL (0.6-1.3); GLUCOSE 94 mg/dL (74-106); POTASSIUM - SERUM 3.4 mmol/L (3.5-5.1); PROTEIN - SERUM 7.6 g/dL (6.4-8.2); SODIUM 140 mmol/L (136-145); UREA NITROGEN 20 mg/dL (7-18); eGFR NON AFRICAN AMERICAN 68 mL/min (90-120)
[2018-09-19 11:47] LABS: CREATINE KINASE 54 UL (21-232); THYROID STIMULATING HORMONE 0.46 uIU/mL (0.36-3.74)
[2018-09-19 11:48] LABS: MAGNESIUM - SERUM 1.9 mg/dL (1.8-2.4); TROPONIN-I 0.017 ng/mL (0.000-0.060)
[2018-09-19 12:03] LABS: CKMB 0.6 U/L (0.0-3.6)
[2018-09-19 12:58] VITALS: BP 123/66
== END 2018-09-19 12:59 | disposition home or self-care (01) ==
LOC: D.ER 10:24
PROVIDERS: Family Medicine
DX: T40.2X5A Adverse effect of other opioids, initial encounter (principal); Y92.019 Unspecified place in single-family (private) house as the place of occurrence of the external cause; G93.89 Other specified disorders of brain; J90 Pleural effusion, not elsewhere classified

== ENCOUNTER → 2019-02-04 21:32 | Outpatient (CLI) | payer MEDICARE, MEDICAID ==
[2018-09-19 10:30] VITALS: BMI 27.9
== END | disposition home or self-care (01) ==
LOC: D.LABREF 21:32
PROVIDERS: ATTEND Urology
DX: R31.9 Hematuria, unspecified (principal)

== ENCOUNTER 2019-03-05 11:25 | Outpatient (CLI) | payer MEDICARE, MEDICAID ==
[2019-03-04 09:33] LABS: CALC OSMOLALITY 284 mosm/kg (275-300); CALCIUM 9.5 mg/dL (8.5-10.1); CARBON DIOXIDE 24.8 mmol/L (21.0-32.0); CHLORIDE - SERUM 103 mmol/L (98-107); GLUCOSE 115 mg/dL (74-106); POTASSIUM - SERUM 4.6 mmol/L (3.5-5.1); SODIUM 139 mmol/L (136-145); UREA NITROGEN 29 mg/dL (7-18); eGFR NON AFRICAN AMERICAN 76 mL/min (90-120)
[2019-03-04 09:44] LABS: BASOPHILS 0 % (0-2); EOSINOPHILS 0 % (0-7); HEMATOCRIT 41.2 % (42.0-54.0); IMMATURE GRANULOCYTES 0.3 % (0-5); LYMPHOCYTES 6.9 % (15-50); MCH 21.8 pg (26.0-34.0); MCHC 31.6 g/dL (31.0-37.0); MEAN PLATELET VOLUME 8.8 fL (7.4-10.4); MONOCYTES 9.4 % (2-11); NEUTROPHILS 83.4 % (40-80); RBC 5.97 10x6/uL (4.20-6.10); RDW 16.8 % (11.5-14.5); WBC 14.8 10x3/uL (4.8-10.8)
[2019-03-04 09:51] LABS: PLATELET COUNT 303 10x3/uL (130-400)
[~2019-03-05] VITALS: Ht 177.8 cm; Wt 98.9 kg
[2019-03-05] MEDS ORDERED: DURAGESIC1 PATCH .4 TRANSDERM (13:32)
[2019-03-05] MEDS ORDERED: PROTONIX40 MG PO (13:33)
[2019-03-05] MEDS ORDERED: KLONOPIN0.5 MG PO (13:34)
[2019-03-05] MEDS ORDERED: LIPITOR40 MG PO (13:35)
[2019-03-05] MEDS ORDERED: LEXAPRO20 MG PO (13:36)
[2019-03-05] MEDS ORDERED: FUROSEMIDE20 MG PO (13:37)
[2019-03-05] MEDS ORDERED: HYDROCODON-ACE1 EAC2 PO (13:38)
[2019-03-05 13:52] VITALS: Ht 177.8 cm; Wt 98.9 kg
--- NOTE | 2019-03-05 15:00 | NUR ---
PATIENT CALLS FOR NURSE STATING THAT "I'M TIRED OF WAITING, I'M GETTING ANXIOUS AND I THINK MY BLOOD PRESSURE IS LOW." BLOOD PRESSURE MEASURED, BP 148/76. PATIENT OFFERED MEDICATION FOR ANXIETY AND ENCOURAGED TO WAIT FOR PROCEDURE, NURSE EXPLAINS THAT PROCEDURE WAS SCHEDULED FOR 1400 AND DELAYS CANNOT BE AVOIDED MANY TIMES. PATIENT WANTS TO KNOW HOW LONG UNTIL PROCEDURE WILL HAPPEN. AMANDA IN SURGERY STATES IT WILL BE ABOUT 30 MINUTES. PATIENT STATES HE CANNOT WAIT THAT LONG AND WANTS TO LEAVE. PIV DC'D BY CATHERINE REYES RN, PATIENT DRESSING IN PERSONAL CLOTHING
== END 2019-03-05 15:10 | disposition home or self-care (01) ==
LOC: D.PAN 11:25
PROVIDERS: Anesthesiology; ATTEND Urology
DX: R31.9 Hematuria, unspecified (principal); Z01.810 Encounter for preprocedural cardiovascular examination; Z01.811 Encounter for preprocedural respiratory examination; Z01.812 Encounter for preprocedural laboratory examination; Z53.20 Procedure and treatment not carried out because of patient's decision for unspecified reasons

== ENCOUNTER → 2019-08-28 11:01 | Outpatient (CLI) | payer MEDICARE, MEDICAID ==
[2019-03-05 13:52] VITALS: BMI 31.3
[~2019-08-28 11:01] MED LIST changes: +DURAGESIC1 PATCH .4 TRANSDERM; +FUROSEMIDE20 MG PO; +HYDROCODON-ACE1 EAC2 PO; +KLONOPIN0.5 MG PO; +LEXAPRO20 MG PO; +LIPITOR40 MG PO; +PROTONIX40 MG PO
== END | disposition home or self-care (01) ==
LOC: D.US 08-26 14:00 → D.CT 08-26 14:30 → D.US 11:01
PROVIDERS: ATTEND Family Medicine
DX: R42 Dizziness and giddiness (principal); R51 Headache